=== PATIENT | female | born 1990 | race Caucasian/White ===

== ENCOUNTER 2018-03-07 05:39 | Inpatient (IN) | payer OTHER ==
[~2018-03-07] VITALS: Ht 165.1 cm; Wt 78.5 kg
[~2018-03-07 05:39] MED LIST: RINGERS SOLUTION,LACTATED 1,000 ML IV ONE
[2018-03-07] MEDS ORDERED: PREN-134 PO (05:40)
[2018-03-07] MEDS ORDERED: CITRIC ACID/SODIUM CITRATE 30 ML SOLUTION UDCUP PO ONE (05:45)
[2018-03-07] MEDS ORDERED: METOCLOPRAMIDE HCL 5 MG/ML 2 ML VIAL IVP ONE (05:45)
[2018-03-07 06:17] VITALS: BP 111/69
[2018-03-07 06:29] LABS: BASOPHILS % (AUTO) 0.7 % (0.0-2.0); EOSINOPHILS % (AUTO) 0.5 % (1.0-6.0); HEMATOCRIT 30.3 % (36-46); HEMOGLOBIN 10.3 g/dL (12.0-16.0); LYMPHOCYTES # (AUTO) 2.5 K/uL (1.0-4.8); MEAN CORPUSCULAR HEMOGLOBIN 26.7 pg (26.0-34.0); MEAN CORPUSCULAR VOLUME 79 fL (80-100); MONOCYTES # (AUTO) 0.9 K/uL (0.1-1.0); MONOCYTES % (AUTO) 8.7 % (2.0-9.0); NEUTROPHILS # (AUTO) 7.2 K/uL (1.8-7.7); NEUTROPHILS % (AUTO) 67.1 % (40.0-70.0); PLATELET COUNT (AUTO) 243 K/uL (150-450); RED BLOOD CELL COUNT(AUTO) 3.86 MIL/uL (4.00-5.20)
[2018-03-07] MEDS ORDERED: ACETAMINOPHEN 1000 MG/ISO-OSM 100 ML IV ONE (06:53)
[2018-03-07] MEDS ORDERED: FentaNYL CITRATE-PF 100 MCG/2 ML VIAL ONE (06:53)
[2018-03-07] MEDS ORDERED: MORPHINE SULFATE/PF 0.5 MG/ML 10 ML AMP ONE (06:53)
[2018-03-07] MEDS ORDERED: EPHEDrine SULFATE 50 MG/ML VIAL IM ONE (07:00)
[2018-03-07] MEDS ORDERED: 0.9% SODIUM CHLORIDE 10 ML VIAL IVP ONE (07:00)
[2018-03-07] MEDS ORDERED: OXYTOCIN 10 UNITS/ML VIAL IM ONE (07:00)
[2018-03-07] MEDS ORDERED: ONDANSETRON HCL 4 MG/2 ML VIAL IVP ONE (07:00)
[2018-03-07] MEDS ORDERED: NALBUPHINE HCL 10 MG/ML VIAL IVP PRN ×3 (08:30)
[2018-03-07] MEDS ORDERED: DEXAMETHASONE SOD PHOS 4 MG/ML VIAL IVP PRN (08:30)
[2018-03-07] MEDS ORDERED: ONDANSETRON HCL 4 MG/2 ML VIAL IVP PRN ×2 (08:30)
[2018-03-07] MEDS ORDERED: DiphenhydrAMINE HCL 50 MG/ML VIAL IVP PRN (08:30)
[2018-03-07] MEDS ORDERED: FentaNYL CITRATE-PF 100 MCG/2 ML VIAL IVP PRN (08:30)
[2018-03-07] MEDS ORDERED: MORPHINE SULFATE 10 MG/ML SYRINGE IVP PRN (08:30)
[2018-03-07] MEDS ORDERED: NALOXONE HCL 0.4 MG/ML VIAL IVP PRN (08:30)
[2018-03-07] MEDS ORDERED: LANOLIN 7 GM OINTMENT TP PRN (08:45)
[2018-03-07] MEDS ORDERED: ACETAMINOPHEN/CODEINE 300-30 MG TABLET PO PRN (08:45)
[2018-03-07] MEDS: MAGNESIUM HYDROXIDE SUSPENSION 30 ML UDCUP PO SCH (09:00)
[2018-03-07] MEDS: DEXTROSE 5%-0.45% SODIUM CHL 1,000 ML IV SCH ×3 (10:06→19:44)
[2018-03-07] MEDS: ACETAMINOPHEN 1000 MG/ISO-OSM 100 ML IV SCH (16:31)
[2018-03-07] MEDS ORDERED: OXYGEN THERAPY IH SCH ×4 (20:00)
[2018-03-08] MEDS: DEXTROSE 5%-0.45% SODIUM CHL 1,000 ML IV SCH (00:19)
[2018-03-08] MEDS: ACETAMINOPHEN 1000 MG/ISO-OSM 100 ML IV SCH (00:19)
[2018-03-08] MEDS: IBUPROFEN 800 MG TABLET PO SCH ×4 (04:06→21:55)
[2018-03-08] MEDS: MAGNESIUM HYDROXIDE SUSPENSION 30 ML UDCUP PO SCH ×2 (08:46→20:43)
[2018-03-09] MEDS: IBUPROFEN 800 MG TABLET PO SCH ×4 (04:01→21:57)
[2018-03-09] MEDS: ACETAMINOPHEN/CODEINE 300-30 MG TABLET PO PRN ×2 (07:33→14:12)
[2018-03-09] MEDS: MAGNESIUM HYDROXIDE SUSPENSION 30 ML UDCUP PO SCH ×2 (09:00→20:40)
[2018-03-10] MEDS: IBUPROFEN 800 MG TABLET PO SCH ×2 (03:46→10:57)
== END 2018-03-10 14:00 | disposition home or self-care (01) | DRG 766 ==
LOC: 4S 05:39 → PREOBSVTOIN 03-17 05:43
PROVIDERS: ADMIT Obstetrics & Gynecology; ATTEND Obstetrics & Gynecology
PROC: 10D00Z1 Extraction of Products of Conception, Low, Open Approach (ICD-10-PCS; principal; 2018-03-07)
DX: O34.211 Maternal care for low transverse scar from previous cesarean delivery (principal); O69.81X0 Labor and delivery complicated by cord around neck, without compression, not applicable or unspecified; Z37.0 Single live birth; Z3A.39 39 weeks gestation of pregnancy
CPT/HCPCS: 86850; 86900; 86901; 87081; J0131; J0690; J2274; J2300; J2405; J2590; J2765; J3010; J3490; J7120